=== PATIENT | female | born 1960 | race Hispanic/Latino ===

== ENCOUNTER 2016-08-08 09:32 | Outpatient (CLI) | payer OTHER ==
--- NOTE | 2016-08-08 12:16 | Nuclear Medicine Report ---
NUCLEAR MEDICINE GASTRIC EMPTYING STUDY History: Abdominal pain. Findings: Anterior abdominal images were obtained for 90 minutes following 1 mCi of technetium 99m sulfur colloid in oatmeal. The images demonstrate a half life for gastric emptying measuring 66 minutes. No evidence for reflux disease. Impression: Normal gastric emptying.
== END 2016-08-08 09:33 | disposition home or self-care (01) ==
LOC: NM 09:32
PROVIDERS: ATTEND Internal Medicine Gastroenterology
DX: R94.5 Abnormal results of liver function studies (principal); R10.9 Unspecified abdominal pain; R11.2 Nausea with vomiting, unspecified
CPT/HCPCS: 78264; A9541

== ENCOUNTER 2020-06-25 06:23 | Emergency (ER) | payer OTHER ==
[2020-06-25 07:38] LABS: Hemoglobin 16.9 gm/dl (10.1-14.3); Mean Corpuscular HGB Conc 35 % (30-34); Mean Corpuscular Volume 97 fl (79-97); Platelet Count 169 K/mm3 (140-440); Red Blood Count 4.93 M/mm3 (3.65-5.03); Red Cell Distribution Width 14.2 % (13.2-15.2)
[2020-06-25 07:48] LABS: INR 1.25 (0.87-1.13)
[2020-06-25 07:49] LABS: Partial Thromboplastin Time 36.4 Sec. (24.2-36.6)
[2020-06-25 08:01] LABS: Alanine Aminotransferase 36 units/L (7-56); Albumin 4.5 g/dL (3.9-5); Blood Urea Nitrogen 18 mg/dL (7-17); Hemolysis Index 4
[2020-06-25 08:03] LABS: BUN/Creatinine Ratio 36
[2020-06-25 08:04] LABS: Basophils % (Auto) 0.1 % (0.0-1.8); Lymphocytes # (Auto) 1.6 K/mm3 (1.2-5.4); Lymphocytes % (Auto) 8.7 % (13.4-35.0); Monocytes % (Auto) 3.2 % (0.0-7.3)
[2020-06-25 08:05] LABS: Monocytes # (Auto) 0.6 K/mm3 (0.0-0.8)
[2020-06-25] MEDS ORDERED: HYDROmorphone 1 MG/1 ML INJ IV ONE (09:55)
[2020-06-25] MEDS ORDERED: SODIUM CHLORIDE 0.9% 1000 ML 1,000 ML IV ONE (09:55)
[2020-06-25] MEDS ORDERED: PANTOPRAZOLE 40 MG INJ IV ONE (09:55)
[2020-06-25] MEDS ORDERED: ONDANSETRON 4 MG/2 ML INJ IV ONE (09:55)
--- NOTE | 2020-06-25 10:10 | Emergency Department Report ---
ED GI Bleed HPI - General Chief complaint: GI Bleed Stated complaint: VOMITING BLOOD Time Seen by Provider: 06/25/20 09:36 Source: patient Mode of arrival: Ambulatory Limitations: No Limitations - History of Present Illness Initial comments: 59-year-old female with past medical history of previous cholecystectomy, hiatal hernia hypertension, diabetes (on insulin and pills), fatty liver, previous to ligation presents to the hospital with complaints of nausea, and vomiting since yesterday hematemesis is this morning. Patient had a cervical polyp removed by her [employer] doctor yesterday and received anesthesia. States since has had history of nausea with anesthesia in the past. When patient went home she had 7-8 episodes of vomiting with p.o. intolerance. She woke up this morning and took 2 ibuprofen tablets and then had several episodes of hematemesis. Patient had an additional 8 episodes of vomiting today all with "blood". Vomitus has transi tioned from bright red blood to coffee-ground emesis. She complains of mild epigastric soreness associated with her vomiting and suprapubic pain since surgery. She denies dysuria, diarrhea, fever, persistent NSAID/aspirin use, peptic ulcer disease, or previous GI bleed, or alcohol abuse. Sometime between 2014 and 2016 patient had a normal endoscopy and colonoscopy showing diverticulosis. PMD: Dr. Garvin with [facility]. Patient not currently seeing a GI specialist - Related Data Home Medications Medication Instructions Recorded Confirmed Last Taken Aspirin 81 mg PO DAILY 12/07/14 12/07/14 Unknown Atenolol 25 mg PO DAILY 12/07/14 12/07/14 Unknown metFORMIN 500 mg PO BID 12/07/14 12/07/14 Unknown Previous Rx's Medication Instructions Recorded Last Taken Type Ciprofloxacin HCl [Ciprofloxacin 500 mg PO BID #20 tablet 12/07/14 Unknown Rx TAB] metroNIDAZOLE [Flagyl] 500 mg PO BID #20 tablet 12/07/14 Unknown Rx traMADoL [Ultram] 50 mg PO Q4HR PRN #20 tablet 12/07/14 Unknown Rx Dicyclomine [Bentyl] 10 mg PO QID PRN #20 capsule 07/01/16 Unknown Rx Ondansetron [Zofran Odt] 4 mg PO QID PRN #20 tab.rapdis 07/01/16 Unknown Rx Pantoprazole [Protonix] 40 mg PO QDAY #10 tablet 06/25/20 Unknown Rx oxyCODONE /ACETAMINOPHEN [Percocet 1 tab PO Q6HR PRN #14 tablet 06/25/20 Unknown Rx 5/325] Allergies Allergy/AdvReac Type Severity Reaction Status Date / Time codeine Allergy Hives Verified 12/07/14 17:13 morphine Allergy Hives Verified 06/25/20 10:11 Penicillins Allergy Hives Verified 12/07/14 17:12 Sulfa (Sulfonamide Allergy Hives Verified 12/07/14 17:12 Antibiotics) ED Review of Systems ROS: Stated complaint: VOMITING BLOOD Other details as noted in HPI Comment: All other systems reviewed and negative ED Past Medical Hx - Past Medical History Previous Medical History?: Yes Hx Hypertension: Yes Hx Diabetes: Yes Additional medical history: Faltty liver - Surgical History Past Surgical History?: Yes Additional Surgical History: Tubal ligation - Social History Smoking Status: Never Smoker Substance Use Type: None - Medications Home Medications: Home Medications Medication Instructions Recorded Confirmed Last Taken Type Aspirin 81 mg PO DAILY 12/07/14 12/07/14 Unknown History Atenolol 25 mg PO DAILY 12/07/14 12/07/14 Unknown History Ciprofloxacin HCl [Ciprofloxacin 500 mg PO BID #20 tablet 12/07/14 Unknown Rx TAB] metFORMIN 500 mg PO BID 12/07/14 12/07/14 Unknown History metroNIDAZOLE [Flagyl] 500 mg PO BID #20 tablet 12/07/14 Unknown Rx traMADoL [Ultram] 50 mg PO Q4HR PRN #20 tablet 12/07/14 Unknown Rx Dicyclomine [Bentyl] 10 mg PO QID PRN #20 capsule 07/01/16 Unknown Rx Ondansetron [Zofran Odt] 4 mg PO QID PRN #20 tab.rapdis 07/01/16 Unknown Rx Pantoprazole [Protonix] 40 mg PO QDAY #10 tablet 06/25/20 Unknown Rx oxyCODONE /ACETAMINOPHEN [Percocet 1 tab PO Q6HR PRN #14 tablet 06/25/20 Unknown Rx 5/325] ED Physical Exam - General Limitations: No Limitations - Other Other exam information: General: No acute distress Head: Atraumatic Eyes: normal appearance ENT: Moist mucous membranes Neck: Normal appearance, no midline tenderness Chest: Clear to auscultation bilaterally CV: Regular rate and rhythm Abdomen: Soft, normal bowel sounds, mild suprapubic tenderness, nondistended, no rebound or guarding Back: Normal inspection Extremity: Normal inspection, full range of motion Neuro: Alert O x 3, no facial asymmetry, speech clear, no gross motor sensory deficit Psych: Appropriate behavior Skin: No rash ED Course Vital Signs 06/25/20 06/25/20 06/25/20 06:47 10:38 10:46 Temperature 97.9 F Pulse Rate 78 88 72 Respiratory 18 17 19 Rate Blood Pressure 186/92 128/62 Blood Pressure [Right] O2 Sat by Pulse 95 Oximetry 06/25/20 06/25/20 06/25/20 11:00 11:07 11:16 Temperature 98.1 F Pulse Rate 86 82 Respiratory 18 15 Rate Blood Pressure 128/62 128/62 Blood Pressure 146/86 [Right] O2 Sat by Pulse 100 Oximetry 06/25/20 06/25/20 06/25/20 11:19 11:30 11:46 Temperature Pulse Rate 71 70 Respiratory 18 16 15 Rate Blood Pressure 128/62 128/62 Blood Pressure [Right] O2 Sat by Pulse Oximetry 06/25/20 06/25/20 12:00 12:16 Temperature Pulse Rate 71 78 Respiratory 12 14 Rate Blood Pressure 111/45 111/45 Blood Pressure [Right] O2 Sat by Pulse Oximetry ED Medical Decision Making - Lab Data Result diagrams: 06/25/20 07:08 06/25/20 07:08 Lab Results 06/25/20 06/25/20 06/25/20 Range/Units 07:08 07:08 07:10 WBC 18.1 H (4.5-11.0) K/mm3 RBC 4.93 (3.65-5.03) M/mm3 Hgb 16.9 H (10.1-14.3) gm/dl Hct 48.0 H (30.3-42.9) % MCV 97 (79-97) fl MCH 34 H (28-32) pg MCHC 35 H (30-34) % RDW 14.2 (13.2-15.2) % Plt Count 169 (140-440) K/mm3 Lymph % (Auto) 8.7 L (13.4-35.0) % [place] % (Auto) 3.2 (0.0-7.3) % Eos % (Auto) 0.0 (0.0-4.3) % Baso % (Auto) 0.1 (0.0-1.8) % Lymph # (Auto) 1.6 (1.2-5.4) K/mm3 [place] # (Auto) 0.6 (0.0-0.8) K/mm3 Eos # (Auto) 0.0 (0.0-0.4) K/mm3 Baso # (Auto) 0.0 (0.0-0.1) K/mm3 Seg Neutrophils % 88.0 H (40.0-70.0) % Seg Neutrophils # 16.6 H (1.8-7.7) K/mm3 PT 15.5 H (12.2-14.9) Sec. INR 1.25 H (0.87-1.13) APTT 36.4 (24.2-36.6) Sec. Sodium 133 L (137-145) mmol/L Potassium 3.9 (3.6-5.0) mmol/L Chloride 94.7 L (98-107) mmol/L Carbon Dioxide 25 (22-30) mmol/L Anion Gap 17 mmol/L BUN 18 H (7-17) mg/dL Creatinine 0.5 L (0.6-1.2) mg/dL Estimated GFR > 60 ml/min BUN/Creatinine Ratio 36 % Glucose 247 H (65-100) mg/dL Calcium 10.0 (8.4-10.2) mg/dL Total Bilirubin 2.70 H (0.1-1.2) mg/dL AST 44 H (5-40) units/L ALT 36 (7-56) units/L Alkaline Phosphatase 165 H (35-129) units/L Total Protein 8.5 H (6.3-8.2) g/dL Albumin 4.5 (3.9-5) g/dL Albumin/Globulin Ratio 1.1 % Lipase 23 (13-60) units/L Blood Type Antibody Screen 06/25/20 Range/Units 07:10 WBC (4.5-11.0) K/mm3 RBC (3.65-5.03) M/mm3 Hgb (10.1-14.3) gm/dl Hct (30.3-42.9) % MCV (79-97) fl MCH (28-32) pg MCHC (30-34) % RDW (13.2-15.2) % Plt Count (140-440) K/mm3 Lymph % (Auto) (13.4-35.0) % [place] % (Auto) (0.0-7.3) % Eos % (Auto) (0.0-4.3) % Baso % (Auto) (0.0-1.8) % Lymph # (Auto) (1.2-5.4) K/mm3 [place] # (Auto) (0.0-0.8) K/mm3 Eos # (Auto) (0.0-0.4) K/mm3 Baso # (Auto) (0.0-0.1) K/mm3 Seg Neutrophils % (40.0-70.0) % Seg Neutrophils # (1.8-7.7) K/mm3 PT (12.2-14.9) Sec. INR (0.87-1.13) APTT (24.2-36.6) Sec. Sodium (137-145) mmol/L Potassium (3.6-5.0) mmol/L Chloride (98-107) mmol/L Carbon Dioxide (22-30) mmol/L Anion Gap mmol/L BUN (7-17) mg/dL Creatinine (0.6-1.2) mg/dL Estimated GFR ml/min BUN/Creatinine Ratio % Glucose (65-100) mg/dL Calcium (8.4-10.2) mg/dL Total Bilirubin (0.1-1.2) mg/dL AST (5-40) units/L ALT (7-56) units/L Alkaline Phosphatase (35-129) units/L Total Protein (6.3-8.2) g/dL Albumin (3.9-5) g/dL Albumin/Globulin Ratio % Lipase (13-60) units/L Blood Type O POSITIVE Antibody Screen Negative - Radiology Data Radiology results: report reviewed CT abdomen pelvis IV contrast: No acute abdominal pelvic pathology. Incidental living findings noted. Postoperative changes noted in the endometrial canal - Medical Decision Making 59-year-old female presents with nausea vomiting after cervical polyp surgery. Patient did receive generalized anesthesia and developed nausea vomiting after discharge home. At suspected patient had a Sonia-Tejeda tear as a result of repeated vomiting episodes. Vomitus was initially clear, then bloody, then coffee-ground. Patient treated in the ED with Dilaudid, Protonix, Zofran, and IV fluids. After ED treatment she reports feeling much better. She is tolerating p.o. liquid intake and denies nausea. Patient advised to follow-up with GI, PMD, and is also provided her CT report to take to her physicians for further outpatient work-up. Leukocytosis is noted. CT does not show any acute pathology and patient denies urinary symptoms and patient denies fever. Leukocytosis stress reaction due to recent surgery Critical Care Time: No Critical care attestation.: If time is entered above; I have spent that time in minutes in the direct care of this critically ill patient, excluding procedure time. ED Disposition Clinical Impression: Postoperative nausea and vomiting, Sonia-Tejeda tear, Hematemesis Disposition: TO HOME OR SELFCARE Is pt being admited?: No Does the pt Need Aspirin: No Condition: Stable Instructions: Nausea and Vomiting, Adult, Sonia-Tejeda Syndrome, Hematemesis Additional Instructions: Take the medication as prescribed. Follow-up with your doctor or doctor/clinic provided. Return if symptoms worsen as indicated by your discharge instructions. Take the copy of the CAT scan report provided to your physician for further work-up as indicated. Prescriptions: oxyCODONE /ACETAMINOPHEN [Percocet 5/325] 1 tab PO Q6HR PRN #14 tablet PRN Reason: Pain Pantoprazole [Protonix] 40 mg PO QDAY #10 tablet Referrals: PREMA GARVIN MD [Primary Care Provider] - 3-5 Days MARYAN LE MD [Staff Physician] - 3-5 Days (GI doctor) Forms: Accompanied Note Time of Disposition: 13:03
--- NOTE | 2020-06-25 11:44 | Cat Scan Report ---
CT ABDOMEN AND PELVIS WITH CONTRAST INDICATION / CLINICAL INFORMATION: n,v, hematemesis, cervical polp removal yesterday. TECHNIQUE: Axial CT images were obtained through the abdomen and pelvis after IV contrast. All CT scans at this location are performed using CT dose reduction for ALARA by means of automated exposure control. COMPARISON: CT abdomen pelvis 07/01/2016 FINDINGS: LOWER CHEST: Punctate pulmonary granulomas in the lung bases. Multivessel coronary artery atheroscler otic calcification. HEPATOBILIARY: Overall heterogeneous appearance of the hepatic parenchyma with nodular contour. Multi ple subcentimeter punctate hypodensities are scattered throughout the liver which are too small to de finitively characterize. Subtle 1.6 cm heterogeneously hypodense lesion in the anterior/peripheral ri ght hepatic lobe (axial series 2 image 57). Finding not definitely apparent on 07/01/2016 examination . Cholecystectomy status. No significant biliary ductal dilatation. PANCREAS/SPLEEN/ADRENALS: Mildly enlarged spleen without focal lesion. Adrenal glands and pancreas de monstrate no significant abnormality. GENITOURINARY: No significant abnormality. GASTROINTESTINAL/MESENTERY: Stool throughout the colon suggesting constipation. No evidence of acute appendicitis. No bowel obstruction or inflammation. No free air or significant free fluid. RETROPERITONEUM: Multiple normal-sized retroperitoneal lymph nodes. REPRODUCTIVE ORGANS: A moderate amount of fluid and a tiny focus of air visualized in the endometrial cavity. Some foci of increased attenuation may represent clot in the endometrial canal. VASCULAR: Moderate atherosclerotic calcification without acute abnormality. BODY WALL: No significant abnormality. SKELETAL SYSTEM: Stable iliac sclerosis adjacent to the right sacroiliac joint. No acute fracture or aggressive osseous lesion. Degenerative osteoarthrosis. IMPRESSION: 1. No acute abdominopelvic abnormality. 2. Moderate amount of fluid in the endometrial canal with some foci of increased attenuation suggesti ng clot. Findings likely represent sequela of recent operative intervention. 3. Heterogeneous appearing liver with nodular contour. Findings can be seen in the setting of cirrhos is. Focal heterogeneous lesion in the right hepatic lobe measures 1.6 cm and should be further evalua hilario with contrast-enhanced triple phase liver CT or MRI. 4. Additional findings as above. Signer Name: Sha Olsen MD Signed: 06/25/2020 11:39 AM Workstation Name: [id number]
[2020-06-25 12:23] VITALS: BP 111/45
== END 2020-06-25 13:29 | disposition home or self-care (01) ==
LOC: ED 06:23
DX: K22.6 Gastro-esophageal laceration-hemorrhage syndrome (principal); R11.2 Nausea with vomiting, unspecified; I10 Essential (primary) hypertension; E11.9 Type 2 diabetes mellitus without complications; Z98.51 Tubal ligation status; Z79.2 Long term (current) use of antibiotics; Z79.899 Other long term (current) drug therapy; Z88.2 Allergy status to sulfonamides; Z88.0 Allergy status to penicillin; Z88.8 Allergy status to other drugs, medicaments and biological substances
CPT/HCPCS: 36415; 74177; 80053; 82271; 83690; 85025; 85610; 85730; 86850; 86900; 86901; 96361; 96374; 96375; 99284; C9113; J1170; J2405; J7030